=== PATIENT | female | born 1990 | race Two or more races ===

== ENCOUNTER 2019-05-30 04:33 | Inpatient (IN) | payer OTHER ==
[~2019-05-30] VITALS: Ht 149.9 cm; Wt 3.2 kg
[2019-05-30] MEDS ORDERED: PRENATAL + DHA1 EAC1 PO (07:33)
[2019-06-01] MEDS ORDERED: PERCOCET 5-3251 EACH PO (09:48)
[2019-06-01] MEDS ORDERED: SURFAK240 M1 PO (09:48)
== END 2019-06-01 11:35 | DRG 785 ==
LOC: LDR 04:33 → OB/GYN 04:33 → LDR 05:24 → OB/GYN 07:45
PROVIDERS: ADMIT Specialist
PROC: 0UB70ZZ Excision of Bilateral Fallopian Tubes, Open Approach (ICD-10-PCS; 2019-05-30)
PROC: 4A1HXCZ Monitoring of Products of Conception, Cardiac Rate, External Approach (ICD-10-PCS; 2019-05-30)
PROC: 4A033R1 Measurement of Arterial Saturation, Peripheral, Percutaneous Approach (ICD-10-PCS; 2019-05-30)
PROC: 10D00Z1 Extraction of Products of Conception, Low, Open Approach (ICD-10-PCS; principal; 2019-05-30 08:00)
DX: O34.211 Maternal care for low transverse scar from previous cesarean delivery (principal); O82 Encounter for cesarean delivery without indication; Z30.2 Encounter for sterilization; Z22.330 Carrier of Group B streptococcus; Z3A.39 39 weeks gestation of pregnancy; Z37.0 Single live birth